=== PATIENT | female | born 1945 | race Caucasian/White ===

== ENCOUNTER 2022-03-12 12:33 | Observation (INO) | payer OTHER ==
[~2022-03-12] VITALS: Ht 172.7 cm; Wt 90.3 kg
[~2022-03-12 12:33] MED LIST: ALBUTEROL0.63 MG/3 INH; AUGMENTIN 875-1 EACH PO; AZITHROMYCIN500 MG PO; BREO ELLIPTA 11 EACH INH; BROVANA15 MCG/2 M INH; CARDIZEM CD300 MG PO; CLARITIN10 MG PO; FERROUS SULFAT325 M2 PO; FLEXERIL 10 MG10 MG PO; HYDROCODON-ACE1 EAC2 PO; LISINOPRIL20 MG PO; LORTAB 5-325 M1 EACH PO; MACROBID 100 M100 MG PO; METFORMIN HCL500 MG PO; MUCINEX600 MG PO; NEURONTIN 400400 MG PO; NORCO 7.5-3251 EACH PO; NOVOLOG 10100 UNITS/ SC; PRAVACHOL40 MG PO; PREDINSONE; PREDNISONE10 M1 PO; PROAIR DIGIHAL90 MCG INH; PROTONIX40 MG PO; PULMICORT0.5 MG/21 INH; SINGULAIR10 MG PO; SPIRIVA RESPIMAT4 GM INH; TAMIFLU 75 MG C75 MG PO; THEO-DUR 300 M300 MG PO; THEOPHYLLINE600 MG PO; TUDORZA PRESS400 MCG INH; XOLAIR 150150 MG/VIA SC; spiriva; symbicort
[2022-03-12 13:44] LABS: HEMOGLOBIN 11.3 gm/dl (12.3-15.3); RED BLOOD COUNT 3.84 M/UL (4.00-5.10); WHITE BLOOD COUNT 8.4 K/UL (4.5-11.0)
[2022-03-12 14:08] LABS: BUN/CREATININE RATIO 17 (0-10)
[2022-03-12] MEDS ORDERED: NEURONTIN800 MG PO (17:23)
[2022-03-12] MEDS ORDERED: SYMBICORT 160-1 INHA INH (17:53)
[2022-03-12] MEDS ORDERED: ALBUTEROL2.5 MG/3 M INH (17:54)
[2022-03-12] MEDS ORDERED: HYDROXYZINE HCL10 MG PO (17:55)
[2022-03-12] MEDS ORDERED: METFORMIN HCL500 MG PO (17:56)
[2022-03-13 03:10] LABS: HEMOGLOBIN 11.4 gm/dl (12.3-15.3); RED BLOOD COUNT 3.93 M/UL (4.00-5.10); WHITE BLOOD COUNT 6.5 K/UL (4.5-11.0)
[2022-03-13 04:21] LABS: BUN/CREATININE RATIO 9 (0-10)
[2022-03-14 03:24] LABS: HEMOGLOBIN 11.6 gm/dl (12.3-15.3); RED BLOOD COUNT 4.01 M/UL (4.00-5.10); WHITE BLOOD COUNT 6.9 K/UL (4.5-11.0)
[2022-03-14 05:07] LABS: BUN/CREATININE RATIO 5 (0-10)
[2022-03-14] MEDS ORDERED: CIPROFLOXACIN500 M1 PO (08:34)
[2022-03-14] MEDS ORDERED: THEOPHYLLINE600 MG PO (08:34)
== END 2022-03-14 13:48 | disposition home or self-care (01) ==
LOC: ER1 12:33 → M/S 16:42 → CDU 16:42 → M/S 16:42
PROVIDERS: Emergency Medicine; Internal Medicine; ADMIT Internal Medicine
DX: R19.7 Diarrhea, unspecified (principal); E83.42 Hypomagnesemia; R91.1 Solitary pulmonary nodule; J44.9 Chronic obstructive pulmonary disease, unspecified; K21.9 Gastro-esophageal reflux disease without esophagitis; R10.31 Right lower quadrant pain; R11.2 Nausea with vomiting, unspecified; Z88.1 Allergy status to other antibiotic agents; Z88.8 Allergy status to other drugs, medicaments and biological substances; Z20.822 Contact with and (suspected) exposure to COVID-19
CPT/HCPCS: 36415; 80048; 80053; 81001; 82550; 82553; 83605; 83690; 83735; 84439; 84443; 84484; 85025; 85027; 86140; 87040; 87086; 93005; 94640; 94664; 94760; 96374; 96375; 99285; C9113; G0378; J1650; J1956; J2185; J2270; J2405; J3475; Q9967; U0002

== ENCOUNTER → 2022-04-25 | Outpatient (CLI) | payer OTHER ==
[~2022-04-25] MED LIST changes: +ALBUTEROL2.5 MG/3 M INH; +CIPROFLOXACIN500 M1 PO; +HYDROXYZINE HCL10 MG PO; +NEURONTIN800 MG PO; +SYMBICORT 160-1 INHA INH
== END ==
LOC: HEART 5 11:40
DX: J45.40 Moderate persistent asthma, uncomplicated (principal)
CPT/HCPCS: 94060; 95012